=== PATIENT | female | born 1985 | race Caucasian/White ===

== ENCOUNTER 2025-07-27 08:55 | Emergency (ER) | payer BC, SELFPAY ==
[2025-07-27 09:03] VITALS: BP 132/87; PULSE 94; RESP 16; TEMP 36.3; O2SAT 99
--- NOTE | 2025-07-27 10:15 | ED_ITS ---
HPI - Skin/Abscess/Foreign Bdy General Chief complaint: Skin/Abscess/Foreign Body Stated complaint: Skin Irritation Time Seen by Provider: 07/27/25 10:08 Source: patient and RN notes reviewed Mode of arrival: ambulatory Limitations: no limitations History of Present Illness HPI narrative: 40-year-old female patient presents today complaining of severely pruritic rash to the lower chest, bilateral hips, and low back that started 2 days ago after sweating at work. She is unsure what caused the rash. She has tried some topical hydrocortisone without much improvement. She is allergic to Benadryl. Related Data Allergies Allergy/AdvReac Type Severity Reaction Status Date / Time diphenhydramine Allergy Mild Hives / Verified 07/27/25 08:57 Red Face PMFSH Comments At time of signature, I have reviewed and agree with nursing past medical, surgical, social and family history unless otherwise noted. Please see nursing chart for further information. There is no relevant family history pertinent to the presenting complaint Exam Narrative: GENERAL: Well-appearing, well-nourished, and in no acute distress. HEAD: Normocephalic, atraumatic. EYES: EOMI. No redness or drainage. Conjunctivae normal. ENT: Mucous membranes pink and moist. NECK: Normal AROM. CHEST: No respiratory distress. EXTREMITIES: Normal range of motion. No edema. SKIN: Warm, dry. Capillary refill normal. Normal skin turgor. Diffuse mildly erythematous papular rash over the bilateral hip areas, anterior bra line, and midline buttocks. No induration, drainage, crusting, vesicles. NEURO: No focal deficits. Alert and oriented x3. Gait steady. PSYCH: Normal affect. No signs of depression or anxiety. Course Course Level of Care: Express Care Visit Vital Signs Vital signs: Vital Signs Temperature 97.4 F L 07/27/25 09:03 Pulse Rate 94 07/27/25 09:03 Respiratory Rate 16 07/27/25 09:03 Blood Pressure 132/87 07/27/25 09:03 Pulse Oximetry 99 07/27/25 09:03 Temperature 97.4 F L 07/27/25 09:03 Pulse Rate 94 07/27/25 09:03 Respiratory Rate 16 07/27/25 09:03 Blood Pressure 132/87 07/27/25 09:03 Pulse Oximetry 99 07/27/25 09:03 Reviewed MDM - Skin/Abscess/Foreign Bdy MDM Narrative Medical decision making narrative: 40-year-old female patient presents today complaining of severely pruritic rash to the lower chest, bilateral hips, and low back that started 2 days ago after sweating at work. She is unsure what caused the rash. She has tried some topical hydrocortisone without much improvement. She is allergic to Benadryl. Upon exam,Diffuse mildly erythematous papular rash over the bilateral hip areas, anterior bra line, and midline buttocks. No induration, drainage, crusting, vesicles. Patient will be treated with 5 day course of prednisone. Patient agrees with plan. Vital signs stable. Anticipatory guidance given. Differential Diagnosis Differential diagnosis: Likely viral exanthem, dermatophytosis, urticaria, eczema, impetigo and contact dermatitis Critical Care Time Critical Care Time Critical Care Time: No Discharge Plan Discharge Clinical Impression: Contact dermatitis Qualifiers: Contact dermatitis type: unspecified Contact dermatitis trigger: unspecified trigger Qualified Code(s): L25.9 - Unspecified contact dermatitis, unspecified cause Patient Disposition: Home Condition: Stable Instructions: Contact Dermatitis (ED) Additional Instructions: Please take the prednisone as prescribed. You may continue topical hydrocortisone as needed. Follow-up with your PCP in 3 days if symptoms are not improving. Patient Language: Hungarian Prescriptions: New prednisone 20 mg tablet 40 mg PO DAILY 5 Days Qty: 10 0RF Follow-up/Referrals: PHYSICIAN,LABORER P[facility] [Primary Care Provider, Internal Medicine] Time of Disposition: 10:19
== END 2025-07-27 10:25 | disposition home or self-care (01) ==
PROVIDERS: Emergency Provider Nurse Practitioner
DX: L25.9 Unspecified contact dermatitis, unspecified cause (principal)
CPT/HCPCS: 99213; G0463